=== PATIENT | female | born 1985 | race Caucasian/White ===

== ENCOUNTER 2017-05-10 00:09 | Emergency (ER) | payer OTHER ==
[2017-05-10] MEDS ORDERED: Diazepam 5 MG TAB ONE (01:22)
[2017-05-10] MEDS ORDERED: Ketorolac Tromethamine 60 MG/2 ML VIAL ONE (01:23)
[2017-05-10] MEDS ORDERED: diphenhydrAMINE 25 MG CAP ONE (01:23)
[2017-05-10] MEDS ORDERED: Metoclopramide HCl 10 MG TAB ONE (01:23)
== END 2017-05-10 01:50 | disposition home or self-care (01) ==
LOC: MADERS 00:09
DX: G43.909 Migraine, unspecified, not intractable, without status migrainosus (principal)
CPT/HCPCS: 96372; J1885

== ENCOUNTER 2018-03-07 18:08 | Emergency (ER) | payer OTHER ==
[2018-03-07 18:30] LABS: Bilirubin Negative (Negative); Blood, Urine Large (Negative); Glucose, Urine (Dipstick) Negative (Negative); Nitrite Negative (Negative); Specific Gravity, Urine 1.025 (1.005-1.030)
[2018-03-07 18:33] LABS: Clarity Slightly Cloudy (Clear)
[2018-03-07 18:34] LABS: Leukocyte Moderate (Negative)
[2018-03-07 18:35] LABS: Protein, Urine (Dipstick) > or equal to 300 mg/dL (Neg-Trace)
[2018-03-07 18:37] LABS: Bacteria/HPF 1+ HPF (None Seen); RBC/HPF 21-50 HPF (0-3); WBC/HPF 21-50 HPF (0-3)
[2018-03-07 18:43] LABS: Pregnancy Test - Urine (BHCG) Negative (Negative); Pregu Control Background? CLEAR/WHITE (CLR/WHITE); Pregu Control Bar Appear? YES (CONTROL BAR); Specific Gravity 1.025 (1.002-1.036)
[2018-03-07] MEDS ORDERED: Morphine 10 MG/ML VIAL ONE (18:47)
[2018-03-07] MEDS ORDERED: Ketorolac Tromethamine 60 MG/2 ML VIAL ONE (18:47)
[2018-03-07] MEDS ORDERED: Lidocaine 1% 20 ML MDV ONE (19:45)
[2018-03-07] MEDS ORDERED: cefTRIAXone\\ROCEPHIN 1 GM VIAL ONE (19:45)
--- NOTE | 2018-03-07 20:30 | CT ---
ABDOMEN CT WITHOUT CONTRAST PELVIC CT WITHOUT CONTRAST 03/07/18 HISTORY: Worsening left flank pain. COMPARISON: None. FINDINGS: ABDOMEN CT: Lung bases are clear. Gallbladder is surgically absent. Heterogeneous attenuation of the liver due to areas of fatty infiltration and fatty sparing. Evaluati on of the solid organs is limited by the lack of IV contrast. Grossly, no additional solid organ abno rmality. No gastrohepatic, retrocrural or periportal lymphadenopathy. No mesenteric mass, lymphadenopathy, free air or free fluid. There are a few scattered nonspecific me senteric lymph nodes. Limited evaluation of the alimentary canal by the lack of oral contrast. No evidence of bowel obstruc tion. Normal ileocecal junction. Normal caliber appendix. Decompressed colon. Scattered materia l is noted. Bilaterally, no evidence of nephrolithiasis or perinephric fat stranding. The right intra and extrare nal collecting system is decompressed. No evidence of obstructive uropathy. There is slight fullness of the left renal pelvis, proximal and mid left ureter. The distal ureter is decompressed. There are no calcifications along the course of the left ureter. CT PELVIS: The uterus and adnexal structures are unremarkable. Trace amount of fluid. Urinary bladder is decompr essed. No obvious calcifications within the urinary bladder. No lytic or blastic lesions in the osseous structures. IMPRESSION: 1. Mild left sided obstructive uropathy. There is no evidence of a calculus in the intra or extr arenal collecting system. Findings may be secondary to recently passed calculus. Correlate with urina lysis. 2. Normal caliber appendix. 3. Areas of fatty infiltration and fatty sparing of the liver, incompletely evaluated. POS: PPP
== END 2018-03-07 20:05 | disposition home or self-care (01) ==
LOC: MADERS 18:08
DX: N39.0 Urinary tract infection, site not specified (principal)
CPT/HCPCS: 74176; 81001; 81025; 96372; J0696; J1885; J2001; J2270

== ENCOUNTER 2024-09-10 15:37 | Emergency (ER) | payer BC, OTHER ==
[2024-09-10] MEDS ORDERED: Ondansetron PF 4 MG/2 ML Vial ONE (16:06)
[2024-09-10 16:27] LABS: Hematocrit 43.1 % (36.0-47.0); Hemoglobin 14.2 g/dL (12.0-16.0); MDiff Complete? YES; Mean Corpuscular Hemoglobin 30.5 pg (27.0-31.0); Mean Corpuscular Volume 92.3 fl (78.0-98.0); Platelet Adequacy Comment Appears Increased; Platelet Count 390 10x3/uL (130-400); Red Blood Cell (RBC) Count 4.67 mill/uL (4.20-5.40); White Blood Cell (WBC) Count 9.6 10x3/uL (4.8-10.8)
[2024-09-10 16:32] LABS: BHCG - Serum Negative (NEGATIVE); Pregs Control Background? CLEAR/WHITE (CLR/WHITE); Pregs Control Bar Appear? YES (CONTROL BAR)
[2024-09-10 16:36] LABS: ALT (SGPT) 12 U/L (Less than 34); AST (SGOT) 31 U/L (11-34); Albumin 4.4 g/dL (3.1-4.5); Alkaline Phosphatase 37 U/L (40-110); Anion Gap 19 mmol/L (10-20); BUN (Urea Nitrogen) 13 mg/dL (7.0-18.7); Bilirubin, Total 0.5 mg/dL (0.3-1.2); Calc. Creatinine Clearance 0 mL/min (70-130); Calcium 9.4 mg/dL (7.8-10.44); Carbon Dioxide 20 mmol/L (22-29); Chloride 102 mmol/L (98-107); Globulin 3.9 g/dL (2.4-3.5); Glucose 105 mg/dL (70-105); Lipase 80 U/L (8-78); Potassium 3.9 mmol/L (3.5-5.1); Sodium 137 mmol/L (136-145)
[2024-09-10] MEDS ORDERED: Metoclopramide HCl 10 MG (2 mL) VIAL ONE (17:11)
[2024-09-10] MEDS ORDERED: diphenhydrAMINE 50 MG/ML VIAL ONE ×2 (17:11→17:29)
== END 2024-09-10 18:32 | disposition home or self-care (01) ==
LOC: MADERS 15:37
DX: R11.2 Nausea with vomiting, unspecified (principal); E11.9 Type 2 diabetes mellitus without complications; I48.91 Unspecified atrial fibrillation
CPT/HCPCS: 80053; 83690; 84703; 85025; 96361; 96374; 96375; J1200; J2405; J2765; J7030